=== PATIENT | male | born 1935 | race American Indian/Alaskan Native ===

== ENCOUNTER 2020-04-19 08:20 | Outpatient (CLI) | payer MEDICARE ==
[2020-04-19 10:02] LABS: Blood Urea Nitrogen 16 mg/dL (9-20)
--- NOTE | 2020-04-19 11:50 | Cat Scan Report ---
CT angio chest INDICATION: AORTIC,DILATATION,VALVE REGURGITATION,HYPERLIPIDEMIA. TECHNIQUE: All CT scans at this location are performed using CT dose reduction for ALARA by means of automated e xposure control. MIP and/or 3-D reconstruction images were produced. COMPARISON: None available. FINDINGS: No mediastinal, hilar or axillary adenopathy. No acute abnormalities in the upper abdomen. Mild, chronic appearing interstitial lung disease. No pleural fluid or acute disease. No evidence of pulmonary embolus. IMPRESSION: 1. Negative for pulmonary embolus. Signer Name: Destin iXe MD Signed: 04/19/2020 11:46 AM Workstation Name: [id number]
== END 2020-04-19 08:21 | disposition home or self-care (01) ==
LOC: CT 08:20
PROVIDERS: ATTEND Internal Medicine Cardiovascular Disease
DX: I35.1 Nonrheumatic aortic (valve) insufficiency (principal); I79.0 Aneurysm of aorta in diseases classified elsewhere; E78.49 Other hyperlipidemia; I10 Essential (primary) hypertension
CPT/HCPCS: 36415; 71275; 82565; 84520; Q9967